=== PATIENT | female | born 1980 | race Caucasian/White ===

== ENCOUNTER 2018-08-24 08:00 | Outpatient (CLI) | payer OTHER | END 2018-08-24 23:59 | disposition home or self-care (01) | LOC: LAB.R 08:00 | PROVIDERS: ATTEND Obstetrics & Gynecology | DX: N92.1 Excessive and frequent menstruation with irregular cycle (principal); Z01.419 Encounter for gynecological examination (general) (routine) without abnormal findings | CPT/HCPCS: 36415; 80053; 80061; 83036; 84436; 84443; 85027; 87491; 87591 ==

== ENCOUNTER 2018-08-24 11:05 | Outpatient (CLI) | payer OTHER ==
[2018-08-24 17:38] LABS: ALBUMIN 4.1 g/dL (3.2-5.5); ALBUMIN/GLOBULIN RATIO 1.1 (1.0-2.2); ALKALINE PHOSPHATASE 44 IU/L (42-121); ALT ALANINE AMINOTRANSFERASE 19 IU/L (10-60); AST ASPARTATE AMINOTRANSFERASE 20 IU/L (10-42); BILIRUBIN,TOTAL 0.8 mg/dL (0.2-1.0); BUN - BLOOD UREA NITROGEN 8 mg/dL (6-20); CARBON DIOXIDE - CO2 22 mmol/L (21-32); CHLORIDE 102 mmol/L (101-111); CHOL/HDL RATIO 7.1 (<4.4); CHOLESTEROL 198 mg/dL; CREATININE 0.6 mg/dL (0.4-1.0); GFR - MDRD 113 (>89); GLUCOSE 76 mg/dL (70-100); HDL CHOLESTEROL 28 mg/dL; LDL CHOLESTEROL,CALCULATED 150 mg/dL; LDL/HDL RATIO 5.4 (<4.4); SODIUM 138 mmol/L (135-145); TOTAL PROTEIN 7.8 g/dL (6.7-8.2); VLDL CHOLESTEROL 20 mg/dL
[2018-08-24 17:44] LABS: T4 (THYROXINE) 11.53 ug/dL (6.09-12.23)
[2018-08-24 17:48] LABS: THYROID STIMULATING HORMONE 0.68 uIU/mL (0.34-5.60)
[2018-08-24 17:56] LABS: HGB - HEMOGLOBIN 13.8 g/dL (12.0-16.0); MEAN CORPUSCULAR HEMOGLOBIN 27.5 pg (27.0-31.0); MEAN CORPUSCULAR HGB CONC 32.9 g/dL (32.0-36.0); MEAN CORPUSCULAR VOLUME 83.4 fL (81.0-99.0); MEAN PLATELET VOLUME 8.3 fL (7.9-10.8); RED BLOOD COUNT 5.03 10^6/uL (4.20-5.40); RED CELL DISTRIBUTION WIDTH 14.7 % (12.0-15.0); WHITE BLOOD COUNT 5.7 x10^3/uL (4.8-10.8)
[2018-08-24 18:36] LABS: HB2 TOTAL 14.9 g/dL; HEMOGLOBIN A1C 0.42 g/dL; HEMOGLOBIN A1C % 4.7 % (4.6-6.2)
== END 2018-08-24 11:06 | disposition home or self-care (01) ==
LOC: LAB.F 11:05
PROVIDERS: ATTEND Obstetrics & Gynecology
DX: Z01.419 Encounter for gynecological examination (general) (routine) without abnormal findings (principal); N92.1 Excessive and frequent menstruation with irregular cycle
CPT/HCPCS: 36415; 80053; 80061; 83036; 83721; 84436; 84443; 85027

== ENCOUNTER 2018-10-04 13:21 | Outpatient (CLI) | payer OTHER ==
--- NOTE | 2018-10-04 16:52 | Ultrasound Report ---
Reason: BICORNUATE UTERUS, INTERMENSTRUAL BLEEDING Procedure Date: 10/04/2018 Accession Number: [id number] / [id number] Procedure: US - Transvaginal CPT Code: FULL RESULT: EXAM: PELVIC ULTRASOUND EXAM DATE: 10/04/2018 03:17 PM. CLINICAL HISTORY: Bicornuate uterus, intermenstrual bleeding. COMPARISON: None. TECHNIQUE: Realtime transabdominal pelvic scan performed to identify the uterus and adnexa and as an overview of other pelvic structures, followed by transvaginal scan to provide greater detail of the uterus and adnexa, with static image documentation. FINDINGS: Uterus: 7.0 x 3.4 x 4.8 cm, volume 61 cc. Anteverted position. Normal overall size with the bifurcation of endometrium compatible with the provided history of bicornuate uterus though the bicornuate configuration is not well-demonstrated on submitted images. Masses: A 2.4 x 1.9 x 1.8 cm intramural hypoechoic posterior fundal mass most likely fibroid is identified. This appears to demonstrate a submucosal component. Endometrium: Up to 1.8 mm as seen. The technologist notes bifurcation of the endometrium which is not demonstrated on a single image, again, compatible with provided history of bicornuate uterus. Cervix: Unremarkable. Right Ovary: 2.5 x 1.2 x 1.7 cm, volume 2.8 cc. Normal echotexture and blood flow. Left Ovary: 3.0 x 1.3 x 1.8 cm, volume 2.7 cc. Normal echotexture and blood flow. Free Fluid: A medium amount of free fluid is seen in the pelvis, greater than expected for physiologic. Other: None. IMPRESSION: Uterine intramural mass, suspect fibroid with submucosal component. Free fluid, greater than expected for physiologic amount. Reported bicornuate uterus is not well-demonstrated on submitted images. If the diagnosis is in question, the patient could return for additional ultrasound imaging as part of this study for completion. RADIA
== END 2018-10-04 13:22 | disposition home or self-care (01) ==
LOC: DI 13:21
PROVIDERS: ATTEND Obstetrics & Gynecology
DX: Q51.3 Bicornate uterus (principal); N92.1 Excessive and frequent menstruation with irregular cycle
CPT/HCPCS: 76830

== ENCOUNTER 2018-10-17 07:39 | Day surgery (SDC) | payer OTHER ==
--- NOTE | 2018-10-17 06:32 | HISTORY & PHYSICAL EXAMINATION ---
HPI - Admitted From Admitted from: Other - History Obtained From History obtained from: Patient Exam limitations: No limitations - History of Present Illness HPI Comment/Other: Ms Ugalde was last seen in [facility] on August 24, 2018. Lidia is a 38 yo . She reports that she has been on OCPs (unsure of formulation) for about 18 months but has been having intermenstrual bleeding. She has a bicornuate uterus di scovered during her last . She is unsure of presence of bicollis. Menses were regular prior to her . She does report occasional irregularities that corresponded ot relationship stress. Menses are otherwise not problematic. LMP was 07/29/18. Has been having light spotting since August 15, with about 10 days of light VB to date. No SA for more than a year. Has been on a keto diet for the last 6 weeks. Up to date with pap smear. She underwent a pelvc us on 10/04/18 that showed an intramural mass wth submucosla component measurng 2.5 cm in greatest dimension as well as a thckned endoemtrium. She presents today for preop exam for hysteroscopy possible polypectomy/myomectomy. No changes in helaht hx since tme of prior exam. PMH/PSH - Past Medical History Cardiovascular: positive: None Respiratory: positive: None Endocrine/Autoimmune: positive: None GI: positive: None : positive: None HEENT: positive: None Psych: positive: None Musculoskeletal: positive: None Derm: positive: None MRSA Hx?: No - Past Surgical History HEENT: positive: Tonsil/Adenoidectomy Meds/Allgy - Home Medications Home Medications: Ambulatory Orders Medication Instructions Recorded Confirmed Norethindrone AC-Eth Estradiol 1 each PO DAILY 10/15/18 10/15/18 [Rola 1.5 mg-30 Mcg Tablet] - Allergies Allergies/Adverse Reactions: Allergies Allergy/AdvReac Type Severity Reaction Status Date / Time amoxicillin Allergy Rash Verified 10/15/18 10:29 Review of Systems - Other Findings Other Findings: As per HPI, otherwise remaining systems are negative. Exam - Physical Exam General Appearance: positive: No acute distress Eyes Bilateral: positive: Normal inspection Neck: positive: Nml inspection Respiratory: positive: Chest non-tender, Breath sounds nml Cardiovascular: positive: Regular rate & rhythm Back: positive: Nml inspection Skin: positive: Color nml Extremities: positive: Non-tender Neurologic/Psychiatric: positive: Oriented x3 (See 08/24/18 for details of pelvc exam.) Results - Diagnostic Imaging Results Diagnostic Imaging Results: positive: Final report reviewed Impression/Plan - Problem List Problem List: Risks, benefits, and alternatives dscussed. Risks include but are nto limited to uterine perforation, bleeding, infection, and damage to nearby tissue and organs. Consent for hysteroscopy, D&C and possible polypectomy and myomectomy obtained. Pre op orders submitted.
[2018-10-17] MEDS ORDERED: LACTATED RINGERS 1,000 ML IV ONE (07:44)
[2018-10-17 08:00] LABS: HCG UR QUAL NEGATIVE
[2018-10-17 08:20] LABS: BASOPHILS # (AUTO) 0.1 10^3/uL (0.0-0.1); BASOPHILS % (AUTO) 1.1 %; EOSINOPHILS # (AUTO) 0.2 10^3/uL (0.0-0.7); HGB - HEMOGLOBIN 13.8 g/dL (12.0-16.0); LYMPHOCYTES # (AUTO) 1.4 10^3/uL (1.5-3.5); LYMPHOCYTES % (AUTO) 26.1 %; MEAN CORPUSCULAR HEMOGLOBIN 28.5 pg (27.0-31.0); MEAN CORPUSCULAR VOLUME 83.7 fL (81.0-99.0); MEAN PLATELET VOLUME 8.6 fL (7.9-10.8); MONOCYTES # (AUTO) 0.5 10^3/uL (0.0-1.0); MONOCYTES % (AUTO) 9.4 %; NEUTROPHILS # (AUTO) 3.2 10^3/uL (1.5-6.6); NEUTROPHILS % (AUTO) 59.2 %; PLT - PLATELET COUNT 350 10^3/uL (130-450); RED BLOOD COUNT 4.85 10^6/uL (4.20-5.40); RED CELL DISTRIBUTION WIDTH 13.5 % (12.0-15.0); WHITE BLOOD COUNT 5.5 x10^3/uL (4.8-10.8)
--- NOTE | 2018-10-17 08:23 | ANESTHESIA ---
Pre-Anesthesia VS, & Labs - Diagnosis Intermenstrual bleeding, uterine fibroid - Procedure hysterscopy, D&C Vital Signs: Temp Pulse Resp BP Pulse Ox 36.4 C L 83 12 135/101 H 98 10/17/18 07:51 10/17/18 07:51 10/17/18 07:51 10/17/18 07:51 10/17/18 07:51 Height 5 ft 1 in Weight (kg) 60 kg - NPO >8 hours - Is Patient ?: No Home Medications and Allergies Home Medications: Ambulatory Orders Norethindrone AC-Eth Estradiol [Rola 1.5 mg-30 Mcg Tablet] 1 each PO DAILY 10/15/18 Norethindrone AC-Eth Estradiol [Rola 1.5 mg-30 Mcg Tablet] 1 each PO DAILY 10/15/18 Allergies/Adverse Reactions: Allergies Allergy/AdvReac Type Severity Reaction Status Date / Time amoxicillin Allergy Rash Verified 10/15/18 10:29 Anes History & Medical History - Anesthetic History Anesthesia Complications: reports: No previous complications (Reports she had a "sunburn" reaction after her last anesthetic.) - Medical History Cardiovascular: reports: None Pulmonary: reports: None Gastrointestinal: reports: None Urinary: reports: None Neuro: reports: None Musculoskeletal: reports: None Endocrine/Autoimmune: reports: None Blood Disorders: reports: None Skin: reports: None Psychosocial: reports: No issues indicated - Surgical History Eyes Ears Nose Throat (EENT): Tonsil/Adenoidectomy Exam General: Alert, Oriented x3, Cooperative, No acute distress Dental: WNL Mouth Openin Fingerbreadth (limited mouth opening) Neck Mobility: Normal Mallampati classification: II Thyromental Distance: 4-6 cm Respiratory: Lungs clear, Normal breath sounds, No respiratory distress, No accessory muscle use Cardiovascular: Regular rate, Normal S1, Normal S2, No murmurs Mental/Cognitive Status: Alert/Oriented X3, Normal for patient Plan Anesthesia Type: General Consent for Procedure(s) Verified and Reviewed: Yes Code Status: Attempt Resuscitation ASA classification: 1-Healthy patient Is this case an emergency?: No
[2018-10-17] MEDS ORDERED: LIDOCAINE MPF 2%-EPI 1:200000 20 ML VIAL ONE (09:25)
[2018-10-17] MEDS ORDERED: LIDOCAINE-MPF 2% 5 ML VIAL IM ONE (10:00)
[2018-10-17] MEDS ORDERED: fentaNYL 100 MCG/2 ML VIAL IVP ONE (10:00)
[2018-10-17] MEDS ORDERED: PROPOFOL 1000 MG/100 ML IV ONE (10:00)
[2018-10-17] MEDS ORDERED: DEXAMETHASONE 4 MG/ML VIAL IVP ONE (10:00)
[2018-10-17] MEDS ORDERED: KETOROLAC 30 MG/ML VIAL IVP ONE (10:00)
[2018-10-17] MEDS ORDERED: ONDANSETRON 4 MG/2 ML VIAL IVP ONE (10:00)
[2018-10-17] MEDS ORDERED: MIDAZOLAM 2 MG/2 ML VIAL IVP ONE (10:00)
[2018-10-17] MEDS ORDERED: LIDOCAINE 2%-EPI 1:100000 20 ML MDV SUBQ ONE ×2 (10:18)
[2018-10-17] MEDS ORDERED: fentaNYL 100 MCG/2 ML VIAL ONE (11:06)
[2018-10-17] MEDS ORDERED: ONDANSETRON 4 MG/2 ML VIAL IVP PRN (11:29)
[2018-10-17] MEDS ORDERED: oxyCODONE 5 MG TABLET PO PRN (11:29)
--- NOTE | 2018-10-17 11:35 | OPERATIVE REPORT ---
Operative Report - General Procedure Date: 10/17/18 Planned Procedure: Hysteroscopy D&C and possible polypectomy/myomectomy Pre-Op Diagnosis: Dysfunctional uterine bleeding, 2.5 cm fibroid with submucosal component Procedure Performed: Hysteroscopy DC and polypectomy Post Op Diagnosis: Bicornuate uterus with small polyp - Procedure Note Primary Surgeon: Triny Ohara MD Anesthesia Provider: SEFERINO Saha Anesthesia Technique: General LMA Pathology: Uterine contents IV Fluids (mL): 800 Estimated Blood Loss (mL): 600 Urine Output (mL): 70 (in and out catheterization at start of procedure) Indications: Dysfunctional uterine bleeding with suspected bicornuate uterus. Pelvic us suggested presence of 2.5 cm fibroid with submucosal component and thickened endometrium. Findings: Bicornuate uterus with right horn slightly larger than left with some polypoid tissue. Small fibroid vs polyp at uterine septum. Single cervix. Complications: none - Other Other Information/Narrative: Risks and benefits of the procedure and consent was confirmed. Ms Ugalde was taken to the operative suite, underwent general anesthesia and placed in a dorsal lithotomy position. She was prepped and draped in the normal sterile fashion. Her bladder was drained with the red Paredes catheter which produced approximately 70 cc of clear yellow urine. A bimanual exam was performed. The uterus was found to be anteverted and mobile. There was a single cervix. A bivalve speculum was placed in the vagina and the anterior lip of the cervix was grasped with the tenaculum. A paracervical block was placed by injecting a total of 18 cc of 2% lidocaine with epinephrine at 4 and 8 o'clock immediately lateral to the cervical portio. The uterus was sounded to 8 cm. The cervix was serially dilated with Hegar dilators. The hysteroscope was placed into the uterus and the above findings were noted. The hysteroscopic morcellator was inserted and the small mass at the uterine septum was removed as was the polypoid tissue in the left horn. A D&C was performed under direct visualization using the morcellator. Blind sharp curettage was not performed given the bicornuate nature of the uterus. Specimen was sent to Pathology for evaluation. The hysteroscope and tenaculum were removed. The cervix was found to be hemostatic. All vaginal instruments were removed. Ms Ugalde was taken out of dorsal lithotomy and brought to the PACU for recovery. The procedure was well tolerated and without complicated.
[2018-10-17 11:55] VITALS: BP 142/104
== END 2018-10-17 07:40 | disposition home or self-care (01) ==
LOC: SDS 07:39
PROVIDERS: ATTEND Obstetrics & Gynecology
PROC: 0UDB8ZZ Extraction of Endometrium, Via Natural or Artificial Opening Endoscopic (ICD-10-PCS; 2018-10-17)
PROC: 0UB98ZZ Excision of Uterus, Via Natural or Artificial Opening Endoscopic (ICD-10-PCS; principal; 2018-10-17 09:00)
DX: N84.0 Polyp of corpus uteri (principal); Q51.3 Bicornate uterus; Z79.3 Long term (current) use of hormonal contraceptives
CPT/HCPCS: 58558; 81025; 85025; J7120

== ENCOUNTER 2023-12-12 12:32 | Outpatient (CLI) | payer OTHER ==
--- NOTE | 2023-12-13 08:16 | Ultrasound Report ---
LIMITED ULTRASOUND OF LEFT BREAST AND AXILLA: 12/12/2023 CLINICAL: Diffuse left breast pain. Comparison is made to exam dated: 12/12/2023 mammogram - [facility]. Color flow ultrasound of the left breast 10-12 o'clock, and axilla regions was performed. Maradiaga scale images of the real-time examination were reviewed. There is a 3.2 cm x 2 cm x 1.1 cm mass with a spiculated margin in the left breast at 12 o'clock midd le depth 7 cm from the nipple. This mass is hypoechoic. This correlates as palpated and with mammog duglas findings. Color flow imaging demonstrates that there is an adjacent vascularity. There also is a 2.2 cm x 1.6 cm x 1.6 cm mass with a spiculated margin in the left breast at 10 o'nick ck middle depth 3 cm from the nipple. No significant abnormalities were seen sonographically in the left axilla. IMPRESSION: HIGHLY SUGGESTIVE OF MALIGNANCY The 3.2 cm x 2 cm x 1.1 cm mass in the left breast at 12 o'clock middle depth is highly suggestive of malignancy. -An ultrasound guided biopsy is recommended. The 2.2 cm x 1.6 cm x 1.6 cm mass in the left breast at 10 o'clock middle depth is highly suggestive of malignancy. -An ultrasound guided biopsy is recommended. No enlarged left axillary lymph nodes. Exam findings were discussed with the patient. This exam was interpreted at Station ID: [id number]. Electronically Signed By: Basim Oneill M.D. slc/:12/12/2023 13:31:05 Ultrasound BI-RADS: 5 Highly suggestive of malignancy BI-RADS CATEGORY: (5) - 5 Biopsy [id number] Immediate follow-up LATERALITY: (L)
--- NOTE | 2023-12-13 08:16 | Mammography Report ---
BILATERAL DIGITAL DIAGNOSTIC MAMMOGRAM 3D/2D: 12/12/2023 CLINICAL: Baseline exam. Palpable lump in left breast. No prior exams were available for comparison. Both breasts are heterogeneously dense, which may obscure small masses (category c / 51-75% glandular tissue). There is a mass with a spiculated margin in the left breast at 12 o'clock middle depth. This correla gale as palpated. There also is a mass with a spiculated margin in the left breast at 11 o'clock middle depth. No other significant masses, calcifications, or other findings are seen in either breast. IMPRESSION: INCOMPLETE: NEEDS ADDITIONAL IMAGING EVALUATION The mass in the left breast at 12 o'clock middle depth is indeterminate. The mass in the left breast at 11 o'clock middle depth is indeterminate. A targeted ultrasound is recommended and will immediately follow. Based on the Tyrer Cuzick model (a risk assessment model) the patient's lifetime risk is 14.6% and he r 10 year risk is 2.0%. According to the ACR, ACS, and NCCN guidelines, an annual breast MRI exam jeyson ng with mammogram is recommended if the patient's lifetime risk is 20% or greater. This exam was interpreted at Station ID: [id number]. NOTE: For mammograms, a report in lay terms will be sent to the patient. Approximately 15% of breast malignancies will not be visualized mammographically. In the management of a palpable breast mass, a negative mammogram must not discourage biopsy of a clinically suspicious lesion. Electronically Signed By: Basim Oneill M.D. slc/:12/12/2023 13:11:28 ACR BI-RADS Category 0: Incomplete 3340F PARENCHYMAL PATTERN: (D) - The breast(s) demonstrate(s) heterogeneously dense fibroglandular parmaribely ma. BI-RADS CATEGORY: (0) - 0 Ultrasound [id number] Immediate follow-up LATERALITY: (B)
== END 2023-12-12 12:33 | disposition home or self-care (01) ==
LOC: DI 12:32
PROVIDERS: ATTEND Obstetrics & Gynecology
DX: N63.22 Unspecified lump in the left breast, upper inner quadrant (principal); N63.25 Unspecified lump in the left breast, overlapping quadrants; R92.333 Mammographic heterogeneous density, bilateral breasts

== ENCOUNTER 2023-12-26 09:51 | Outpatient (CLI) | payer OTHER ==
[~2023-12-26 09:51] MED LIST: LIDOCAINE 1%-EPI 1:100000 20 ML MDV ONE; LIDOCAINE-MPF 1% 5 ML VIAL ONE
[2023-12-26] MEDS: LIDOCAINE-MPF 1% 5 ML VIAL TD ONE (12:12)
[2023-12-26] MEDS: LIDOCAINE 1%-EPI 1:100000 20 ML MDV SUBQ ONE (12:12)
--- NOTE | 2023-12-28 14:33 | Ultrasound Report ---
ULTRASOUND GUIDED BIOPSY LEFT BREAST WITH MARKING DEVICE INSERTED: 12/26/2023 CLINICAL: Left breast mass. PATIENT CONSENT: Risks (minor bleeding, infection, vasovagal reaction and repeat procedure), benefits and alternatives were explained to the patient and written informed consent was obtained. Correlation is made to exams dated: 12/12/2023 ultrasound, 12/12/2023 mammogram, and 12/26/2023 mammogr [facility]. An ultrasound guided biopsy using real-time ultrasound was performed for the 2.5 cm x 2.4 cm x 1.4 cm irregular shaped mass located in the left breast at 12 o'clock middle depth 7 cm from the nipple. T his was described on the previous ultrasound report. The skin was prepped in the usual manner. Loca l anesthetic was administered to the access site. A skin wero was made in the breast. The abnormali ty was approached from the lateral aspect. A 14 gauge biopsy needle was placed adjacent to the abnor mality under ultrasound guidance. Once the needle was documented to be in the correct location, four cores were obtained using Bard Marquee. The patient received additional local anesthetic during the procedure. A hydromark clip was inserted into the biopsy cavity. A skin adhesive and a sterile clotilde ssing were applied to the access site. Post procedure imaging demonstrates the location device at th e targeted area. The specimens were sent to the laboratory for pathological analysis. IMPRESSION: ULTRASOUND GUIDED BIOPSY MALIGNANT Ultrasound guided biopsy of the 2.5 cm x 2.4 cm x 1.4 cm mass in the left breast at 12 o'clock middle depth 7 cm from the nipple was successful. 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 Pathology results are concordant with imaging findings. A breast MRI and a surgical/oncologic consultation are recommended. This exam was interpreted at Station ID: [id number]. Low Whitmore M.D., Ph.D. brendan woods/:12/28/2023 13:28:40 BI-RADS CATEGORY: () - Unspecified - other recall n/a LATERALITY: (B)
--- NOTE | 2023-12-28 14:33 | Ultrasound Report ---
ULTRASOUND GUIDED BIOPSY LEFT BREAST WITH MARKING DEVICE INSERTED: 12/26/2023 CLINICAL: Left breast mass. PATIENT CONSENT: Risks (minor bleeding, infection, vasovagal reaction and repeat procedure), benefits and alternatives were explained to the patient and written informed consent was obtained. Correlation is made to exams dated: 12/12/2023 ultrasound and 12/12/2023 mammogram - [facility]. An ultrasound guided biopsy using real-time ultrasound was performed for the 2 cm x 1.9 cm x 1.4 cm l obulated mass located in the left breast at 10 o'clock middle depth 3 cm from the nipple. This was d escribed on the previous ultrasound report. The skin was prepped in the usual manner. Local anesthe tic was administered to the access site. A skin wero was made in the breast. The abnormality was ap proached from the lateral aspect. A 14 gauge biopsy needle was placed adjacent to the abnormality un bridgett ultrasound guidance. Once the needle was documented to be in the correct location, five specimen s were obtained using Bard Marquee. The patient received additional local anesthetic during the proc edure. A Hydromark clip was inserted into the biopsy cavity. A skin adhesive and a sterile dressing were applied to the access site. Post procedure imaging demonstrates the location device at the tar geted area. The specimens were sent to the laboratory for pathological analysis. IMPRESSION: ULTRASOUND GUIDED BIOPSY MALIGNANT Ultrasound guided biopsy of the 2 cm x 1.9 cm x 1.4 cm mass in the left breast at 10 o'clock middle d epth 3 cm from the nipple was successful. 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 Pathology results are concordant with imaging findings. A breast MRI and a surgical/oncologic consultation are recommended. This exam was interpreted at Station ID: [id number]. Low Whitmore M.D., Ph.D. brendan woods/:12/28/2023 13:29:27 BI-RADS CATEGORY: () - Unspecified - other recall n/a LATERALITY: (B)
--- NOTE | 2023-12-28 14:33 | Mammography Report ---
UNILATERAL LEFT DIGITAL DIAGNOSTIC MAMMOGRAM - LEFT BREAST POST-PROCEDURE IMAGING FOR MARKER PLACEMEN CLINICAL: Post left breast ultrasound biopsy clip placement imaging. Comparison is made to exams dated: 12/12/2023 mammogram, 12/12/2023 ultrasound, 12/26/2023 ultrasound b iopsy, and 12/26/2023 ultrasound biopsy - [facility]. The breasts are heterogeneously dense, which may obscure small masses (category c / 51-75% glandular tissue). There is a marker clip in the appropriate position in the left breast at 12 o'clock middle depth at t he biopsy site. There also is a marker clip in the appropriate position in the left breast at 10 o'clock middle depth at the biopsy site. IMPRESSION: POST PROCEDURE MAMMOGRAM FOR MARKER PLACEMENT There was a successful marker clip placement in the left breast at 12 o'clock middle depth. There was a successful marker clip placement in the left breast at 10 o'clock middle depth. This exam was interpreted at Station ID: [id number]. Electronically Signed By: Basim Oneill M.D. [facility] [place]:12/27/2023 21:20:25 ACR BI-RADS Category Post-Procedure Mammogram for Marker Placement PARENCHYMAL PATTERN: (D) - The breast(s) demonstrate(s) heterogeneously dense fibroglandular josé miguel harper. BI-RADS CATEGORY: () - Unspecified - other recall n/a LATERALITY: (B)
== END 2023-12-26 09:52 | disposition home or self-care (01) ==
LOC: DI 09:51
PROVIDERS: ATTEND Obstetrics & Gynecology
DX: C50.912 Malignant neoplasm of unspecified site of left female breast (principal); R92.8 Other abnormal and inconclusive findings on diagnostic imaging of breast
CPT/HCPCS: 19083; 19084

== ENCOUNTER 2024-01-11 13:18 | Outpatient (CLI) | payer OTHER ==
[~2024-01-11 13:18] MED LIST changes: +GADOTERATE MEGLUMINE 10 MMOL/20 ML VIAL ONE; -LIDOCAINE 1%-EPI 1:100000 20 ML MDV ONE; -LIDOCAINE-MPF 1% 5 ML VIAL ONE
[2024-01-11] MEDS: GADOTERATE MEGLUMINE 10 MMOL/20 ML VIAL IVP ONE (14:50)
--- NOTE | 2024-01-12 16:07 | MRI Report ---
BREAST MRI OF BOTH BREASTS: 01/11/2024 CLINICAL: Patient returns for additional imaging over a suspected mass in the left breast. Known [facility] cancer. PROCEDURE: Breast BL W/WO INDICATIONS: L BREAST CA CONTRAST: CLARISCAN 16.4 ML TECHNIQUE: The patient was placed prone in a dedicated breast imaging coil. Precontrast axial STIR and 3D spoil ed GE without fat saturation sequences were obtained. Both before and after bolus injection of contr ast, sequential 1-minute axial 3D spoiled GE with fat saturation sequences for 3 time points, with navarro btraction images and maximum intensity projections (MIP's) generated. Delayed sagittal spoiled GE im ages with fat saturation were also obtained. Computer-aided detection, including computer algorithm analysis of MRI image data for lesion detectio n and characterization, pharmacokinetic analysis, with further physician review for interpretation, w as performed. COMPARISON: Mammogram 12/11/2021, 12/26/2023 and breast ultrasound 12/12/2023, 12/26/2023 FINDINGS: Image quality: Diagnostic. There are scattered fibroglandular tissue. There is marked and symmetric background parenchymal enhan cement. Right breast: No suspicious enhancement or lymphadenopathy Left breast: At 12:00, 6.3 cm from the nipple there is a spiculated mass measuring 2.8 x 3.4 x 2.2 c m (AP by ML by SI, , , ). This corresponds to biopsy-proven malignancy with biopsy clip at the inferior aspect of the mass. At 10:00, 6 cm from the nipple there is a spiculated mass measuring 2.1 x 2.8 x 2.4 cm (AP by ML by S I, and ) corresponding to biopsy-proven malignancy. Biopsy clip is seen at the anterior navarro perior aspect of the mass. This mass is located approximately 2.1 cm inferior to the 12 o'clock mass with total span of disease measuring up to 6.0 cm in SI dimension. There is no suspicious lymphadenopathy. IMPRESSION: [id number]-[id number]-[id number] MALIGNANCY Left breast biopsy-proven multifocal malignancy in the upper inner quadrant presenting as 3.4 cm and 2.8 cm spiculated masses at 12:00 and 10:00, respectively with biopsy clips at site. Total extent of disease is 6.0 cm in SI dimension. No suspicious left lymphadenopathy. Recommend surgical and oncolog ical follow-up. No MRI evidence of malignancy in the right breast. This exam was interpreted at Station ID: [id number]. Electronically Signed By: Lucy Whitmore M.D., Ph.D. eb/:01/12/2024 12:42:51 ACR BI-RADS Category 6: Hhfbf-Gukuuv-[place]nbkok Malignancy BI-RADS CATEGORY: (6) - 6 Unspecified - other recall n/a LATERALITY: (B)
== END 2024-01-11 13:19 | disposition home or self-care (01) ==
LOC: DI 13:18
PROVIDERS: ATTEND Obstetrics & Gynecology
DX: C50.212 Malignant neoplasm of upper-inner quadrant of left female breast (principal)
CPT/HCPCS: 77049; A9575